=== PATIENT | male | born 1965 | race Caucasian/White ===

== ENCOUNTER 2022-08-11 16:47 | Emergency (ER) | payer MEDICAID, SELFPAY ==
[2022-08-11 16:53] VITALS: BP 206/125; PULSE 95; RESP 20; TEMP 36.6; O2SAT 95; BMI 38.2
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
[2022-08-11] MEDS: HYDROcodone-acetaminophen 10-325 mg Tablet 2 TAB PO (17:40)
[2022-08-11 17:41] VITALS: RESP 18
[2022-08-11] MEDS: morphine 4 mg/mL SDV 1 mL IM (17:41)
[2022-08-11] MEDS: dexamethasone 10 mg/mL INJ IM (17:42)
== END 2022-08-11 17:47 | disposition home or self-care (01) ==
PROVIDERS: Emergency Provider Nurse Practitioner Family
DX: M25.511 Pain in right shoulder (principal); S16.1XXA Strain of muscle, fascia and tendon at neck level, initial encounter; V53.5XXA Driver of pick-up truck or van injured in collision with car, pick-up truck or van in traffic accident, initial encounter
CPT/HCPCS: 72040; 73030; 96372; 99284; J1100; J2270